=== PATIENT | male | born 1960 | race Caucasian/White ===

== ENCOUNTER → 2023-12-08 16:03 | Outpatient (REF) | payer OTHER, SELFPAY | LOC: HWRAD 16:03 | PROVIDERS: ATTENDING PHYSICIAN Family Medicine | DX: M25.551 Pain in right hip (principal); M25.562 Pain in left knee; M25.561 Pain in right knee | CPT/HCPCS: 73502; 73564 ==

== ENCOUNTER → 2025-05-23 11:55 | Outpatient (REF) | payer MEDICARE, OTHER, SELFPAY | LOC: HWRAD 11:55 | PROVIDERS: ATTENDING PHYSICIAN Family Medicine | DX: I50.9 Heart failure, unspecified (principal) | CPT/HCPCS: 71046 ==

== ENCOUNTER → 2025-05-30 12:58 | Outpatient (REF) | payer MEDICARE, OTHER, SELFPAY | LOC: HWRCS 12:58 | PROVIDERS: ATTENDING PHYSICIAN Family Medicine | DX: I50.9 Heart failure, unspecified (principal) | CPT/HCPCS: 93306 ==

== ENCOUNTER 2025-06-23 07:51 | Day surgery (SDC) | payer MEDICARE, OTHER, SELFPAY ==
[2025-06-23] VITALS (12 sets, daily range): BP systolic 131–158; BP diastolic 78–103; BMI 41.0
[2025-06-23] MEDS: LOW STRENGTH ASPIRIN 81 MG PO (08:56)
[2025-06-23 09:00] LABS: Glucose - Point of Care 133 mg/dl (70-99)
--- NOTE | 2025-06-23 12:19 | ITS.CL.CATH ---
Director Of Food And Nutrition Services - Catheterization
Cardiac Catheterization
Procedure Report:
CARDIAC CATHETERIZATION REPORT
Date of Procedure: 06/23/2025
Referring: Castillo Carrington M.D.
INDICATION: New cardiomyopathy.
PROCEDURE:
1. Left heart catheterization
2. Coronary angiography.
A total of 20 minutes of procedural/moderate sedation was utilized. An independent medical csr was present to assist with and help manage the patient's level of consciousness and physiologic status.
ACCESS:
1. 6 [place] right radial artery using a modified Seldinger technique.
CATHETERS:
1. 5 [place] JR4.
2. 5 [place] JL 3.5.
HEMODYNAMIC DATA
Weight (kg): 122.4
AO (s/d/x, mmHg): 143/91/114
LV (s/x mmHg): 147/24
AV gradient (x, mmHg): None.
LEFT VENTRICULOGRAPHY: Not performed.
CORONARY ANGIOGRAPHY
Dominance: Right.
Left Main: Normal size, trifurcating vessel. There is no coronary artery disease.
LAD: Normal size vessel giving rise to 1 large diagonal. This diagonal has several smaller branches. There is no coronary artery disease.
Ramus: Normal size vessel supplying the majority of the lateral wall and bifurcating into 2 daughter branches at its distal margin. There is no coronary artery disease.
Circumflex: Small size, nondominant vessel that is essentially a small obtuse marginal off the AV groove vessel. There is no coronary artery disease.
RCA: Large size, dominant vessel. There is no coronary artery disease.
INTERVENTION(S)
None
Closure Device: Vascular band.
Radiation (mGy): 389.06
DAP (cm2.Gy): 31.1033
Fluoroscopy time (minutes): 2.1
CONCLUSIONS
1. Right dominant circulation with no coronary artery disease.
2. Severely elevated filling pressures (LVEDP = 24 mmHg at 122.4 kg).
3. No ischemic nidus for systolic cardiomyopathy.
RECOMMENDATIONS:
1. Expectant management after cardiac catheterization via right radial approach.
2. Limited weight bearing on the right for one week.
3. OMT/GDMT as hemodynamics will tolerate.
4. Increase furosemide to 80 mg daily given severe elevation in filling pressures. BMP in 1 week.
5. Stable for outpatient follow-up.
Copy to: Castillo Carrington M.D., Chris Davis M.D.
Daren Reardon DO, FACC, FACP
[2025-06-23 12:27] LABS: Glucose - Point of Care 115 mg/dl (70-99)
== END 2025-06-23 15:25 | disposition home or self-care (01) ==
LOC: CATH 07:51
PROVIDERS: ATTENDING PHYSICIAN Internal Medicine Cardiovascular Disease; FAMILY PHYSICIAN Family Medicine; OTHER PHYSICIAN Internal Medicine Cardiovascular Disease
DX: I42.9 Cardiomyopathy, unspecified (principal)
CPT/HCPCS: 99152; 82962; 93458; C1769